=== PATIENT | female | born 1990 | race Caucasian/White ===

== ENCOUNTER 2017-03-19 13:10 | Emergency (ER) | payer BC, MEDICAID ==
[2017-03-19 13:23] VITALS: BP 109/70
--- NOTE | 2017-03-19 13:33 | UC ---
Shoulder Pain HPI - HPI Summary HPI Summary: 26 year old wih shoulder pain. Pt had a back injury w/ lifting during moving a month ago. Back pain has resolved but c/o pain that radiates from right shoulder down arm over the last 3 weeks. Origincal injury not at work but work made the shoulder pain worsened. Pain does radiate from the shoulder to the elbow. Night time pain. Has tried NSAIDs and not helping. Has tried MJ to sleep and it helps sometimes. Pain started shortly after moving to [place] and was picking up items an twisting alot no low back pain. No weakness in the arm. [ End ] - History of Current Complaint Chief Complaint: UCUpperExtremity Stated Complaint: RIGHT ARM PAIN Time Seen by Provider: 03/19/17 13:19 Hx Obtained From: Patient Hx Last Menstrual Period: last week Onset/Duration: Sudden Onset Timing: Intermittent Episode Lasting Severity Initially: Moderate Severity Currently: Moderate Character: Stiffness Aggravating Factor(s): Movement Alleviating Factor(s): Rest - Allergies/Home Medications Allergies/Adverse Reactions: Allergies Allergy/AdvReac Type Severity Reaction Status Date / Time Corticosteroids Allergy Swelling Verified 03/19/17 13:18 Sulfa Antibiotics Allergy Hives Verified 03/19/17 13:18 PMH/Surg Hx/FS Hx/Imm Hx Previously Healthy: Yes - Social History Alcohol Use: Rare Substance Use Type: Marijuana Substance Use Comment - Amount & Last Used: last used last weekend Smoking Status (MU): Never Smoked Tobacco Review of Systems Musculoskeletal: Arthralgia Neurological: Paresthesia, Numbness All Other Systems Reviewed And Are Negative: Yes Physical Exam Triage Information Reviewed: Yes Appearance: Well-Appearing, No Pain Distress, Well-Nourished Vital Signs: Initial Vital Signs Temp 98.4 F 03/19/17 13:18 Pulse 74 03/19/17 13:18 Resp 16 03/19/17 13:18 BP 109/70 03/19/17 13:18 Pulse Ox 100 03/19/17 13:18 Vital Signs Reviewed: Yes Respiratory Exam: Normal Cardiovascular Exam: Normal Musculoskeletal Exam: Normal Musculoskeletal: Positive: Strength Intact, ROM Intact, Other: - (+) mild impingment sign. strength 5/5. sensation intact for the right shoulder. mild discomfort to the lateral tricep with exertion but otherwise no acute concerns. C spine without tenderness , no step off, no sp tenderness, FROM C spine, no paraspinal tenderness. Neurological Exam: Normal Psychological Exam: Normal Shoulder Course/Dx - Course Course Of Treatment: Discussed medrol but allergy. Start PT, refer to Ortho, to see PCP next week. Cont with NSAIds with meal. RTO if any concerns. No trauma to the neck or shoulder and not present for 4 weeks at this time. - Differential Dx/Diagnosis Provider Diagnoses: Cervical radiculopathy Discharge - Discharge Plan Condition: Good Disposition: HOME Prescriptions: Cyclobenzaprine TAB* [Flexeril 10 MG TAB*] 10 mg PO BID PRN #10 tab PRN Reason: Spasms Patient Education Materials: Cervical Radiculopathy (ED) Referrals: Rasta Grier MD [Medical Doctor] - If Needed (Ortho referral ) Additional Instructions: Please seek care with Physical therapy and keep your appt with your primary care physician.
== END 2017-03-19 13:49 | disposition home or self-care (01) ==
LOC: UCCORT 13:10
DX: M54.12 Radiculopathy, cervical region (principal); Z88.8 Allergy status to other drugs, medicaments and biological substances; Z88.2 Allergy status to sulfonamides
CPT/HCPCS: 99202; G0463

== ENCOUNTER 2017-06-25 14:36 | Emergency (ER) | payer BC ==
--- NOTE | 2017-06-25 14:52 | UC ---
Skin Complaint HPI - HPI Summary HPI Summary: 26 year old female presents with severe head injury, forehead wound, and late menses. - History of Current Complaint Time Seen by Provider: 06/25/17 14:51 Stated Complaint: HEAD SKIN COMPLAINT Hx Obtained From: Patient Hx Last Menstrual Period: last week Onset/Duration: Sudden Onset Skin Exposure Onset/Duration: Days Ago Onset Severity: Severe Current Severity: Severe Pain Scale Used: 0-10 Numeric - 8 Location: Face - Allergy/Home Medications Allergies/Adverse Reactions: Allergies Allergy/AdvReac Type Severity Reaction Status Date / Time Corticosteroids Allergy Swelling Verified 06/25/17 15:04 Sulfa Antibiotics Allergy Hives Verified 06/25/17 15:04 Home Medications: Home Medications Ibuprofen [Ibuprofen 200 MG] 400 mg PO Q6H PRN 06/25/17 [History Confirmed 06/25] Review of Systems Constitutional: Negative Skin: Other - right forhead lesion Eyes: Negative ENT: Other - right inferior orbital plate tenderness Respiratory: Negative Cardiovascular: Negative Gastrointestinal: Negative Genitourinary: Negative Motor: Negative Neurovascular: Negative Musculoskeletal: Negative Neurological: Negative Psychological: Negative All Other Systems Reviewed And Are Negative: Yes PMH/Surg Hx/FS Hx/Imm Hx Previously Healthy: Yes - Surgical History Surgical History: None - Family History Known Family History: Positive: None - Social History Alcohol Use: Rare Substance Use Type: Marijuana Substance Use Comment - Amount & Last Used: last used last weekend Smoking Status (MU): Never Smoked Tobacco Physical Exam Triage Information Reviewed: Yes Vital Signs Reviewed: Yes Eye Exam: Normal ENT: Positive: Other - right inferior orbital plate pain Dental Exam: Normal Neck exam: Normal Neck: Positive: 1 Respiratory Exam: Normal Cardiovascular Exam: Normal Abdominal Exam: Normal Musculoskeletal Exam: Normal Neurological Exam: Normal Psychological Exam: Normal Skin: Positive: Other - right forehead wound/abscess Course/Dx - Diagnoses Provider Diagnoses: right inferior orbital injury. right forehead abscess Discharge - Discharge Plan Condition: Stable Disposition: OTHER Discharge Disposition Comment: patient suggested to go to the er Patient Education Materials: Head Injury (ED), Acute Wound Care (ED) Referrals: No Primary Care Phys,NOPCP [Primary Care Provider] - Additional Instructions: patient suggested to go to the er for severe head contusion and cellulitis.
[2017-06-25 15:03] VITALS: BP 128/77
--- NOTE | 2017-06-26 22:04 | UC ---
Progress - Progress Note Progress Note: patient called by jennifer. patient seen in er and placed on augmentin.
== END 2017-06-25 15:40 ==
LOC: UCCORT 14:36
DX: S05.91XA Unspecified injury of right eye and orbit, initial encounter (principal); L02.01 Cutaneous abscess of face; X58.XXXA Exposure to other specified factors, initial encounter; Y92.9 Unspecified place or not applicable; Z32.02 Encounter for pregnancy test, result negative; Z88.3 Allergy status to other anti-infective agents; F12.90 Cannabis use, unspecified, uncomplicated
CPT/HCPCS: 81003; 84702; 87070; 87077; 87186; 87205; 99211; G0463